=== PATIENT | female | born 1945 | race Asian ===

== ENCOUNTER 2019-03-11 13:34 | Emergency (ER) | payer OTHER ==
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
== END 2019-03-11 13:59 | disposition home or self-care (01) ==
LOC: ER 13:34
DX: I10 Essential (primary) hypertension (principal); Z04.1 Encounter for examination and observation following transport accident; E11.9 Type 2 diabetes mellitus without complications
CPT/HCPCS: 99283